=== PATIENT | male | born 1930 | race Caucasian/White ===

== ENCOUNTER → 2017-02-05 | Outpatient (REF) | payer MEDICARE ==
[2017-02-05 12:42] LABS: MEAN CORPUSCULAR HEMOGLOBIN 29.8 pg (27.0-33.0); MEAN CORPUSCULAR HGB CONC 33.8 g/dl (32.0-36.5); MEAN CORPUSCULAR VOLUME 88.1 fl (80.0-96.0); RED CELL DISTRIBUTION WIDTH 12.4 % (11.5-14.5); WHITE BLOOD COUNT 5.7 K/mm3 (4.0-10.0)
[2017-02-05 12:49] LABS: ALBUMIN 3.7 GM/DL (3.2-5.2); ALBUMIN/GLOBULIN RATIO 1.23 (1.00-1.93); ALKALINE PHOSPHATASE 65 U/L (45-117); ALT/SGPT 17 U/L (12-78); ANION GAP 9 MEQ/L (8-16); AST/SGOT 15 U/L (15-37); BILIRUBIN,TOTAL 0.6 MG/DL (0.2-1.0); BLOOD UREA NITROGEN 16 MG/DL (7-18); CALCIUM LEVEL 9.1 MG/DL (8.8-10.2); CARBON DIOXIDE LEVEL 27 MEQ/L (21-32); CHLORIDE LEVEL 105 MEQ/L (98-107); CHOLESTEROL LEVEL 240 MG/DL (<200); CREATININE FOR GFR 1.18 MG/DL (0.70-1.30); GLOMERULAR FILTRATION RATE > 60.0 (>35); GLUCOSE, FASTING 121 MG/DL (83-110); SODIUM LEVEL 141 MEQ/L (136-145); TOTAL PROTEIN 6.7 GM/DL (6.4-8.2); TRIGLYCERIDES LEVEL 119 MG/DL (<150)
== END ==
LOC: M SFHCCLAY 07:10
PROVIDERS: ATTEND Family Medicine
DX: M25.511 Pain in right shoulder (principal); I10 Essential (primary) hypertension; E11.9 Type 2 diabetes mellitus without complications; J44.9 Chronic obstructive pulmonary disease, unspecified

== ENCOUNTER → 2017-03-05 | Outpatient (REF) | payer MEDICARE | LOC: M SFHCCLAY 08:19 | PROVIDERS: ATTEND Nurse Practitioner | DX: R35.0 Frequency of micturition (principal) | CPT/HCPCS: 81002; 87086; G0463 ==

== ENCOUNTER → 2017-04-02 | Outpatient (REF) | payer MEDICARE ==
[2017-04-02 12:06] LABS: MEAN CORPUSCULAR HEMOGLOBIN 29.8 pg (27.0-33.0); MEAN CORPUSCULAR HGB CONC 33.4 g/dl (32.0-36.5); MEAN CORPUSCULAR VOLUME 89.4 fl (80.0-96.0); RED CELL DISTRIBUTION WIDTH 12.6 % (11.5-14.5); WHITE BLOOD COUNT 5.9 K/mm3 (4.0-10.0)
[2017-04-02 12:11] LABS: ALBUMIN 3.9 GM/DL (3.2-5.2); ALBUMIN/GLOBULIN RATIO 1.18 (1.00-1.93); ALKALINE PHOSPHATASE 96 U/L (45-117); ALT/SGPT 17 U/L (12-78); ANION GAP 7 MEQ/L (8-16); AST/SGOT 12 U/L (15-37); BILIRUBIN,TOTAL 0.6 MG/DL (0.2-1.0); BLOOD UREA NITROGEN 29 MG/DL (7-18); CALCIUM LEVEL 8.9 MG/DL (8.8-10.2); CARBON DIOXIDE LEVEL 25 MEQ/L (21-32); CHLORIDE LEVEL 102 MEQ/L (98-107); CREATININE FOR GFR 1.69 MG/DL (0.70-1.30); GLOMERULAR FILTRATION RATE 41.3 (>35); GLUCOSE, FASTING 101 MG/DL (83-110); SODIUM LEVEL 134 MEQ/L (136-145); TOTAL PROTEIN 7.2 GM/DL (6.4-8.2)
[2017-04-02 12:15] LABS: POTASSIUM SERUM 5.3 MEQ/L (3.5-5.1)
[2017-04-04 12:06] LABS: ALBUMIN 4.41 GM/DL (3.29-5.55); ALBUMIN % 61.3 % (55.8-66.1); GAMMA GLOBULIN % 12.8 % (11.1-18.8)
== END ==
LOC: M SFHCCLAY 08:51
PROVIDERS: ATTEND Family Medicine
DX: Z00.00 Encounter for general adult medical examination without abnormal findings (principal); M51.36 Other intervertebral disc degeneration, lumbar region; M54.5 Low back pain; Z12.5 Encounter for screening for malignant neoplasm of prostate
CPT/HCPCS: 80053; 84165; 85027; 85652; G0103

== ENCOUNTER → 2017-04-02 | Outpatient (CLI) | payer MEDICARE ==
--- NOTE | 2017-04-02 09:54 | REP ---
LUMBAR SPINE, SEVEN VIEWS: HISTORY: Back pain. COMPARISON: 05/01/2016. There is no acute fracture or subluxation. Osteophytes are present on L1 through S1. The intervertebral discs are decreased in height consistent with disc degeneration. There is narrowing of the facet joints. IMPRESSION: Degenerative change as described above.
== END ==
LOC: M CLY 08:53
PROVIDERS: ATTEND Family Medicine
DX: M51.36 Other intervertebral disc degeneration, lumbar region (principal)
CPT/HCPCS: 72114; 80053; 84165; 85027; 85652; G0103

== ENCOUNTER → 2017-04-10 | Outpatient (REF) | payer MEDICARE ==
[2017-04-10 12:02] LABS: ALBUMIN 4.1 GM/DL (3.2-5.2); CALCIUM LEVEL 9.4 MG/DL (8.8-10.2); CREATININE FOR GFR 1.82 MG/DL (0.70-1.30); GLOMERULAR FILTRATION RATE 37.9 (>35); PHOSPHORUS LEVEL 3.4 MG/DL (2.5-4.9); POTASSIUM SERUM 4.8 MEQ/L (3.5-5.1)
== END ==
LOC: M SFHCCLAY 07:54
PROVIDERS: ATTEND Family Medicine
DX: I10 Essential (primary) hypertension (principal)
CPT/HCPCS: 80069; G0463

== ENCOUNTER → 2017-07-23 | Outpatient (REF) | payer MEDICARE ==
[2017-07-23 11:38] LABS: MEAN CORPUSCULAR HEMOGLOBIN 28.7 pg (27.0-33.0); MEAN CORPUSCULAR HGB CONC 32.4 g/dl (32.0-36.5); MEAN CORPUSCULAR VOLUME 88.4 fl (80.0-96.0); RED CELL DISTRIBUTION WIDTH 13.2 % (11.5-14.5); WHITE BLOOD COUNT 5.8 K/mm3 (4.0-10.0)
[2017-07-23 11:50] LABS: CALCIUM LEVEL 8.6 MG/DL (8.8-10.2); CREATININE FOR GFR 1.63 MG/DL (0.70-1.30); GLOMERULAR FILTRATION RATE 42.9 (>35); POTASSIUM SERUM 4.2 MEQ/L (3.5-5.1)
== END ==
LOC: M SFHCCLAY 07:34
PROVIDERS: ATTEND Family Medicine
DX: D50.0 Iron deficiency anemia secondary to blood loss (chronic) (principal); I10 Essential (primary) hypertension; E11.9 Type 2 diabetes mellitus without complications; J44.9 Chronic obstructive pulmonary disease, unspecified

== ENCOUNTER → 2017-08-27 | Outpatient (REF) | payer MEDICARE | LOC: M SFHCCLAY 16:25 | PROVIDERS: ATTEND Family Medicine | DX: R30.0 Dysuria (principal) | CPT/HCPCS: 81002; 87086; G0463 ==

== ENCOUNTER → 2017-09-02 | Outpatient (REF) | payer MEDICARE ==
[2017-09-02 12:17] LABS: MEAN CORPUSCULAR HGB CONC 32.8 g/dl (32.0-36.5); MEAN CORPUSCULAR VOLUME 85.6 fl (80.0-96.0); PLATELET COUNT, AUTOMATED 197 10^3/uL (150-450); RED CELL DISTRIBUTION WIDTH 13.2 % (11.5-14.5); WHITE BLOOD COUNT 5.6 10^3/uL (4.0-10.0)
[2017-09-02 12:43] LABS: ALBUMIN 3.4 GM/DL (3.2-5.2); ALBUMIN/GLOBULIN RATIO 1.1 (1.00-1.93); BILIRUBIN,TOTAL 0.5 MG/DL (0.2-1.0); CALCIUM LEVEL 8.6 MG/DL (8.8-10.2); CREATININE FOR GFR 1.37 MG/DL (0.70-1.30); GLOMERULAR FILTRATION RATE 52.4 (>35); POTASSIUM SERUM 3.8 MEQ/L (3.5-5.1); TOTAL PROTEIN 6.5 GM/DL (6.4-8.2)
== END ==
LOC: M SFHCCLAY 07:59
PROVIDERS: ATTEND Family Medicine
DX: R30.0 Dysuria (principal); J44.9 Chronic obstructive pulmonary disease, unspecified; I10 Essential (primary) hypertension; D64.9 Anemia, unspecified

== ENCOUNTER → 2017-09-04 | Outpatient (REF) | payer MEDICARE | LOC: M SFHCCLAY 09:25 | PROVIDERS: ATTEND Family Medicine | DX: E11.21 Type 2 diabetes mellitus with diabetic nephropathy (principal); Z23 Encounter for immunization | CPT/HCPCS: 83036; 90662; G0008; G0463 ==

== ENCOUNTER 2017-11-19 02:00 | Inpatient (IN) | payer MEDICARE, MEDICAID ==
[2017-11-19] MEDS: NS 1,000 ML IV (02:43)
[2017-11-19] MEDS ORDERED: IPRATROPIUM 0.5MG/ALBUTEROL 2.5MG INH SOL UD 3ML (DUONEB)(J7620) NEB (05:15)
[2017-11-19] MEDS ORDERED: GLUCAGON FOR INJ 1 MG VIAL (J1610) SC (05:15)
[2017-11-19] MEDS ORDERED: GLUCOSE 4 GM CHEW TABLET PO (05:15)
[2017-11-19] MEDS ORDERED: DEXTROSE 50% 50 ML SYRINGE IV (05:15)
[2017-11-19] MEDS ORDERED: OLOPATADINE 0.1% OPHTH SOL 5ML(PATANOL) OU (05:30)
[2017-11-19 06:17] LABS: HEMATOCRIT 34.8 % (42.0-52.0); HEMOGLOBIN 11.5 g/dl (14.0-18.0); MEAN CORPUSCULAR VOLUME 87.7 fl (80.0-96.0); PLATELET COUNT, AUTOMATED 193 10^3/uL (150-450); RED BLOOD COUNT 3.97 10^6/uL (4.30-6.10); RED CELL DISTRIBUTION WIDTH 13.5 % (11.5-14.5); WHITE BLOOD COUNT 8.8 10^3/uL (4.0-10.0)
[2017-11-19] MEDS: HumaLOG INSULIN (NovoLOG) PER UNIT SC ×4 (06:20→23:54)
[2017-11-19] MEDS: LEVEMIR (INSULIN DETEMIR) 1 UNITS/0.01ML SC (06:20)
[2017-11-19] MEDS: D5W/0.45% SODIUM CHLORIDE 1,000 ML IV ×2 (06:21→17:34)
[2017-11-19 06:32] LABS: ANION GAP 6 MEQ/L (8-16); BLOOD UREA NITROGEN 62 MG/DL (7-18); CALCIUM LEVEL 8.5 MG/DL (8.8-10.2); CARBON DIOXIDE LEVEL 31 MEQ/L (21-32); CHLORIDE LEVEL 103 MEQ/L (98-107); CREATININE FOR GFR 1.95 MG/DL (0.70-1.30); GLOMERULAR FILTRATION RATE 34.9 (>35); GLUCOSE, FASTING 125 MG/DL (83-110); SODIUM LEVEL 140 MEQ/L (136-145)
[2017-11-19] MEDS: cloNIDine HCL 0.1 MG/24 HR PATCH TOP (09:45)
[2017-11-19] MEDS: ADVAIR HFA 230/21MCG INHALER INH ×2 (10:00→21:00)
[2017-11-19 11:38] LABS: BEDSIDE GLUCOSE 121 MG/DL (83-110)
[2017-11-19 11:49] LABS: BEDSIDE GLUCOSE 125 MG/DL (83-110)
[2017-11-19 17:14] LABS: BEDSIDE GLUCOSE 118 MG/DL (83-110)
[2017-11-19 23:50] LABS: BEDSIDE GLUCOSE 142 MG/DL (83-110)
[2017-11-19] MEDS: MORPHINE 2 MG/ML 1ML SYRINGE IV (23:55)
[2017-11-20] MEDS: D5W/0.45% SODIUM CHLORIDE 1,000 ML IV ×3 (03:24→21:36)
[2017-11-20] MEDS: MORPHINE 2 MG/ML 1ML SYRINGE IV (03:45)
[2017-11-20] MEDS: HumaLOG INSULIN (NovoLOG) PER UNIT SC ×4 (06:11→23:56)
[2017-11-20 06:14] LABS: BEDSIDE GLUCOSE 115 MG/DL (83-110)
[2017-11-20 06:51] LABS: HEMATOCRIT 36.4 % (42.0-52.0); HEMOGLOBIN 11.9 g/dl (14.0-18.0); MEAN CORPUSCULAR HEMOGLOBIN 28.8 pg (27.0-33.0); MEAN CORPUSCULAR HGB CONC 32.7 g/dl (32.0-36.5); MEAN CORPUSCULAR VOLUME 88.1 fl (80.0-96.0); PLATELET COUNT, AUTOMATED 190 10^3/uL (150-450); RED BLOOD COUNT 4.13 10^6/uL (4.30-6.10); RED CELL DISTRIBUTION WIDTH 13.5 % (11.5-14.5)
[2017-11-20 07:08] LABS: ANION GAP 5 MEQ/L (8-16); BLOOD UREA NITROGEN 45 MG/DL (7-18); CALCIUM LEVEL 8.6 MG/DL (8.8-10.2); CARBON DIOXIDE LEVEL 30 MEQ/L (21-32); CHLORIDE LEVEL 106 MEQ/L (98-107); CREATININE FOR GFR 1.63 MG/DL (0.70-1.30); GLOMERULAR FILTRATION RATE 42.9 (>35); GLUCOSE, FASTING 126 MG/DL (83-110); POTASSIUM SERUM 3.8 MEQ/L (3.5-5.1); SODIUM LEVEL 141 MEQ/L (136-145)
[2017-11-20] MEDS: ADVAIR HFA 230/21MCG INHALER INH ×2 (08:06→21:46)
[2017-11-20 11:59] LABS: BEDSIDE GLUCOSE 123 MG/DL (83-110)
[2017-11-20] MEDS: TAMSULOSIN 0.4 MG CAP PO ×2 (12:34→21:36)
[2017-11-20] MEDS: FINASTERIDE 5 MG TAB PO (14:26)
[2017-11-20] MEDS: PANTOPRAZOLE 40MG TAB (PROTONIX) PO (14:26)
[2017-11-20] MEDS: HEPARIN SOD (PORCINE) 5000 UNITS/ML VIAL SQ (14:26)
[2017-11-20 17:55] LABS: BEDSIDE GLUCOSE 109 MG/DL (83-110)
[2017-11-21] MEDS: HEPARIN SOD (PORCINE) 5000 UNITS/ML VIAL SQ ×2 (02:10→13:50)
[2017-11-21 03:05] LABS: BEDSIDE GLUCOSE 124 MG/DL (83-110)
[2017-11-21] MEDS: MORPHINE 2 MG/ML 1ML SYRINGE IV (03:43)
[2017-11-21] MEDS: HumaLOG INSULIN (NovoLOG) PER UNIT SC ×4 (06:00→23:53)
[2017-11-21 07:02] LABS: HEMATOCRIT 32.2 % (42.0-52.0); HEMOGLOBIN 10.5 g/dl (14.0-18.0); MEAN CORPUSCULAR HEMOGLOBIN 28.6 pg (27.0-33.0); MEAN CORPUSCULAR HGB CONC 32.6 g/dl (32.0-36.5); MEAN CORPUSCULAR VOLUME 87.7 fl (80.0-96.0); PLATELET COUNT, AUTOMATED 153 10^3/uL (150-450); RED BLOOD COUNT 3.67 10^6/uL (4.30-6.10); RED CELL DISTRIBUTION WIDTH 13.4 % (11.5-14.5); WHITE BLOOD COUNT 7.1 10^3/uL (4.0-10.0)
[2017-11-21 07:15] LABS: BEDSIDE GLUCOSE 145 MG/DL (83-110)
[2017-11-21 07:18] LABS: ANION GAP 7 MEQ/L (8-16); BLOOD UREA NITROGEN 30 MG/DL (7-18); CALCIUM LEVEL 7.8 MG/DL (8.8-10.2); CARBON DIOXIDE LEVEL 28 MEQ/L (21-32); CHLORIDE LEVEL 107 MEQ/L (98-107); CREATININE FOR GFR 1.48 MG/DL (0.70-1.30); GLUCOSE, FASTING 146 MG/DL (83-110); POTASSIUM SERUM 3.8 MEQ/L (3.5-5.1); SODIUM LEVEL 142 MEQ/L (136-145)
[2017-11-21] MEDS: D5W/0.45% SODIUM CHLORIDE 1,000 ML IV ×2 (08:49→18:02)
[2017-11-21] MEDS: FINASTERIDE 5 MG TAB PO (08:49)
[2017-11-21] MEDS: PANTOPRAZOLE 40MG TAB (PROTONIX) PO (08:49)
[2017-11-21] MEDS: TAMSULOSIN 0.4 MG CAP PO ×2 (08:49→20:28)
[2017-11-21] MEDS: ADVAIR HFA 230/21MCG INHALER INH ×2 (08:51→21:00)
[2017-11-21 12:36] LABS: BEDSIDE GLUCOSE 151 MG/DL (83-110)
[2017-11-21] MEDS: SIMETHICONE 80 MG CHEW TAB PO ×3 (13:51→20:28)
[2017-11-21] MEDS ORDERED: ACETAMINOPHEN TAB 650MG DOSE (2X325MG) PO (16:15)
[2017-11-21 18:02] LABS: BEDSIDE GLUCOSE 149 MG/DL (83-110)
[2017-11-21 23:53] LABS: BEDSIDE GLUCOSE 146 MG/DL (83-110)
[2017-11-22] MEDS: HEPARIN SOD (PORCINE) 5000 UNITS/ML VIAL SQ ×2 (01:32→15:28)
[2017-11-22] MEDS: D5W/0.45% SODIUM CHLORIDE 1,000 ML IV ×3 (03:58→23:13)
[2017-11-22] MEDS: HumaLOG INSULIN (NovoLOG) PER UNIT SC ×4 (05:48→23:48)
[2017-11-22 05:50] LABS: BEDSIDE GLUCOSE 128 MG/DL (83-110)
[2017-11-22 06:29] LABS: HEMATOCRIT 31.3 % (42.0-52.0); HEMOGLOBIN 10.3 g/dl (14.0-18.0); MEAN CORPUSCULAR HEMOGLOBIN 28.5 pg (27.0-33.0); MEAN CORPUSCULAR HGB CONC 32.9 g/dl (32.0-36.5); MEAN CORPUSCULAR VOLUME 86.7 fl (80.0-96.0); PLATELET COUNT, AUTOMATED 144 10^3/uL (150-450); RED BLOOD COUNT 3.61 10^6/uL (4.30-6.10); RED CELL DISTRIBUTION WIDTH 13.2 % (11.5-14.5); WHITE BLOOD COUNT 6.8 10^3/uL (4.0-10.0)
[2017-11-22 07:01] LABS: ANION GAP 5 MEQ/L (8-16); BLOOD UREA NITROGEN 21 MG/DL (7-18); CALCIUM LEVEL 7.9 MG/DL (8.8-10.2); CARBON DIOXIDE LEVEL 28 MEQ/L (21-32); CHLORIDE LEVEL 108 MEQ/L (98-107); CREATININE FOR GFR 1.37 MG/DL (0.70-1.30); GLOMERULAR FILTRATION RATE 52.4 (>35); GLUCOSE, FASTING 133 MG/DL (83-110); POTASSIUM SERUM 3.8 MEQ/L (3.5-5.1); SODIUM LEVEL 141 MEQ/L (136-145)
[2017-11-22] MEDS: ADVAIR HFA 230/21MCG INHALER INH ×2 (07:49→21:29)
[2017-11-22] MEDS: PANTOPRAZOLE 40MG TAB (PROTONIX) PO (09:18)
[2017-11-22] MEDS: FINASTERIDE 5 MG TAB PO (09:18)
[2017-11-22] MEDS: SIMETHICONE 80 MG CHEW TAB PO ×4 (09:18→20:56)
[2017-11-22] MEDS: TAMSULOSIN 0.4 MG CAP PO ×2 (09:18→20:56)
[2017-11-22] MEDS: LevoFLOXacin(LEVAQUIN)500 MG/100 ML BAG (J1956) As Ordered (10:45)
[2017-11-22] MEDS: BUPIVACAINE HCL 0.25% 30 ML VIAL As Ordered (11:38)
[2017-11-22] MEDS: LIDOCAINE W/EPINEPHRINE 1% 20ML VIAL As Ordered (11:38)
[2017-11-22] MEDS ORDERED: MORPHINE 2 MG/ML 1ML SYRINGE IV (11:45)
[2017-11-22] MEDS ORDERED: NORCO, ANEXSIA 5/325MG TABLET (HYDROcodone/ACETAMINOPHEN) PO ×2 (11:45)
[2017-11-22] MEDS ORDERED: fentaNYL 100 MCG/2 ML INJECTION (J3010) IV (12:15)
[2017-11-22] MEDS: LR 1,000 ML IV (12:15)
[2017-11-22] MEDS ORDERED: ONDANSETRON 4MG/2ML VIAL (J2405) IV (12:15)
[2017-11-22] MEDS ORDERED: PERCOCET 5MG/325MG TAB As Ordered (12:40)
[2017-11-22] MEDS: PERCOCET 5MG/325MG TAB PO (12:43)
[2017-11-22] MEDS ORDERED: MIDAZOLAM INJ 2 MG/2 ML VIAL (J2250) As Ordered (13:14)
[2017-11-22] MEDS ORDERED: fentaNYL 100 MCG/2 ML INJECTION (J3010) As Ordered (13:14)
[2017-11-22 13:34] LABS: BEDSIDE GLUCOSE 147 MG/DL (83-110)
[2017-11-22 17:50] LABS: BEDSIDE GLUCOSE 139 MG/DL (83-110)
[2017-11-22] MEDS: DOCUSATE SODIUM 100 MG CAP PO (20:56)
[2017-11-22] MEDS: SENNA 8.6 MG TAB (SENOKOT) PO (20:56)
[2017-11-22] MEDS: ACETAMINOPHEN TAB 650MG DOSE (2X325MG) PO (20:57)
[2017-11-22 23:49] LABS: BEDSIDE GLUCOSE 183 MG/DL (83-110)
[2017-11-23] MEDS: HEPARIN SOD (PORCINE) 5000 UNITS/ML VIAL SQ ×2 (01:46→12:58)
[2017-11-23 05:49] LABS: BEDSIDE GLUCOSE 140 MG/DL (83-110)
[2017-11-23] MEDS: HumaLOG INSULIN (NovoLOG) PER UNIT SC ×4 (06:01→23:44)
[2017-11-23 06:03] LABS: HEMATOCRIT 30.8 % (42.0-52.0); HEMOGLOBIN 10.1 g/dl (14.0-18.0); MEAN CORPUSCULAR HEMOGLOBIN 28.6 pg (27.0-33.0); MEAN CORPUSCULAR HGB CONC 32.8 g/dl (32.0-36.5); MEAN CORPUSCULAR VOLUME 87.3 fl (80.0-96.0); PLATELET COUNT, AUTOMATED 136 10^3/uL (150-450); RED BLOOD COUNT 3.53 10^6/uL (4.30-6.10); RED CELL DISTRIBUTION WIDTH 13.3 % (11.5-14.5); WHITE BLOOD COUNT 7.4 10^3/uL (4.0-10.0)
[2017-11-23 06:25] LABS: ANION GAP 7 MEQ/L (8-16); BLOOD UREA NITROGEN 18 MG/DL (7-18); CALCIUM LEVEL 7.7 MG/DL (8.8-10.2); CARBON DIOXIDE LEVEL 25 MEQ/L (21-32); CHLORIDE LEVEL 106 MEQ/L (98-107); CREATININE FOR GFR 1.35 MG/DL (0.70-1.30); GLOMERULAR FILTRATION RATE 53.3 (>35); GLUCOSE, FASTING 144 MG/DL (83-110); POTASSIUM SERUM 3.7 MEQ/L (3.5-5.1); SODIUM LEVEL 138 MEQ/L (136-145)
[2017-11-23] MEDS: ADVAIR HFA 230/21MCG INHALER INH ×2 (08:20→19:35)
[2017-11-23] MEDS: DOCUSATE SODIUM 100 MG CAP PO ×2 (09:26→21:56)
[2017-11-23] MEDS: SIMETHICONE 80 MG CHEW TAB PO ×4 (09:26→21:56)
[2017-11-23] MEDS: PANTOPRAZOLE 40MG TAB (PROTONIX) PO (09:27)
[2017-11-23] MEDS: FINASTERIDE 5 MG TAB PO (09:27)
[2017-11-23] MEDS: TAMSULOSIN 0.4 MG CAP PO ×2 (09:27→21:56)
[2017-11-23] MEDS: D5W/0.45% SODIUM CHLORIDE 1,000 ML IV (09:27)
[2017-11-23 12:28] LABS: BEDSIDE GLUCOSE 156 MG/DL (83-110)
[2017-11-23] MEDS: ACETAMINOPHEN TAB 650MG DOSE (2X325MG) PO ×2 (12:58→18:44)
[2017-11-23] MEDS: amLODIPine 5 MG TAB PO (14:51)
[2017-11-23 17:34] LABS: BEDSIDE GLUCOSE 119 MG/DL (83-110)
[2017-11-23] MEDS: SENNA 8.6 MG TAB (SENOKOT) PO (21:56)
[2017-11-23 23:47] LABS: BEDSIDE GLUCOSE 148 MG/DL (83-110)
[2017-11-24] MEDS: HEPARIN SOD (PORCINE) 5000 UNITS/ML VIAL SQ ×2 (01:41→13:05)
[2017-11-24 06:12] LABS: BEDSIDE GLUCOSE 126 MG/DL (83-110)
[2017-11-24 06:13] LABS: HEMATOCRIT 29.9 % (42.0-52.0); HEMOGLOBIN 9.8 g/dl (14.0-18.0); MEAN CORPUSCULAR HEMOGLOBIN 28.6 pg (27.0-33.0); MEAN CORPUSCULAR HGB CONC 32.8 g/dl (32.0-36.5); MEAN CORPUSCULAR VOLUME 87.2 fl (80.0-96.0); PLATELET COUNT, AUTOMATED 136 10^3/uL (150-450); RED BLOOD COUNT 3.43 10^6/uL (4.30-6.10); RED CELL DISTRIBUTION WIDTH 13.5 % (11.5-14.5); WHITE BLOOD COUNT 7.9 10^3/uL (4.0-10.0)
[2017-11-24] MEDS: HumaLOG INSULIN (NovoLOG) PER UNIT SC ×4 (06:15→20:57)
[2017-11-24 06:30] LABS: ANION GAP 6 MEQ/L (8-16); BLOOD UREA NITROGEN 15 MG/DL (7-18); CARBON DIOXIDE LEVEL 26 MEQ/L (21-32); CHLORIDE LEVEL 108 MEQ/L (98-107); CREATININE FOR GFR 1.33 MG/DL (0.70-1.30); GLOMERULAR FILTRATION RATE 54.3 (>35); GLUCOSE, FASTING 119 MG/DL (83-110); POTASSIUM SERUM 3.6 MEQ/L (3.5-5.1); SODIUM LEVEL 140 MEQ/L (136-145)
[2017-11-24] MEDS: ADVAIR HFA 230/21MCG INHALER INH ×2 (08:13→22:09)
[2017-11-24] MEDS: PANTOPRAZOLE 40MG TAB (PROTONIX) PO (08:38)
[2017-11-24] MEDS: FINASTERIDE 5 MG TAB PO (08:38)
[2017-11-24] MEDS: TAMSULOSIN 0.4 MG CAP PO ×2 (08:38→21:01)
[2017-11-24] MEDS: SIMETHICONE 80 MG CHEW TAB PO ×4 (08:39→21:01)
[2017-11-24] MEDS: DOCUSATE SODIUM 100 MG CAP PO (08:39)
[2017-11-24] MEDS: amLODIPine 5 MG TAB PO (08:39)
[2017-11-24] MEDS ORDERED: GLUCOSE 4 GM CHEW TABLET PO (11:30)
[2017-11-24] MEDS ORDERED: DEXTROSE 50% 50 ML SYRINGE IV (11:30)
[2017-11-24] MEDS ORDERED: GLUCAGON FOR INJ 1 MG VIAL (J1610) SC (11:30)
[2017-11-24 11:59] LABS: BEDSIDE GLUCOSE 133 MG/DL (83-110)
[2017-11-24] MEDS: ACETAMINOPHEN TAB 650MG DOSE (2X325MG) PO ×2 (13:06→22:31)
[2017-11-24 16:54] LABS: BEDSIDE GLUCOSE 149 MG/DL (83-110)
[2017-11-24 21:27] LABS: BEDSIDE GLUCOSE 135 MG/DL (83-110)
[2017-11-25] MEDS: HEPARIN SOD (PORCINE) 5000 UNITS/ML VIAL SQ ×2 (02:23→14:23)
[2017-11-25 06:43] LABS: HEMATOCRIT 29.5 % (42.0-52.0); HEMOGLOBIN 9.8 g/dl (14.0-18.0); MEAN CORPUSCULAR HEMOGLOBIN 28.8 pg (27.0-33.0); MEAN CORPUSCULAR HGB CONC 33.2 g/dl (32.0-36.5); MEAN CORPUSCULAR VOLUME 86.8 fl (80.0-96.0); PLATELET COUNT, AUTOMATED 149 10^3/uL (150-450); RED CELL DISTRIBUTION WIDTH 13.8 % (11.5-14.5); WHITE BLOOD COUNT 7.9 10^3/uL (4.0-10.0)
[2017-11-25 07:02] LABS: ANION GAP 7 MEQ/L (8-16); BLOOD UREA NITROGEN 16 MG/DL (7-18); CALCIUM LEVEL 8.1 MG/DL (8.8-10.2); CARBON DIOXIDE LEVEL 25 MEQ/L (21-32); CHLORIDE LEVEL 108 MEQ/L (98-107); CREATININE FOR GFR 1.21 MG/DL (0.70-1.30); GLOMERULAR FILTRATION RATE > 60.0 (>35); GLUCOSE, FASTING 128 MG/DL (83-110); POTASSIUM SERUM 3.5 MEQ/L (3.5-5.1); SODIUM LEVEL 140 MEQ/L (136-145)
[2017-11-25] MEDS: ADVAIR HFA 230/21MCG INHALER INH ×2 (07:21→21:33)
[2017-11-25] MEDS: HumaLOG INSULIN (NovoLOG) PER UNIT SC ×4 (07:30→20:49)
[2017-11-25] MEDS: SIMETHICONE 80 MG CHEW TAB PO ×4 (09:03→20:52)
[2017-11-25] MEDS: FINASTERIDE 5 MG TAB PO (09:03)
[2017-11-25] MEDS: PANTOPRAZOLE 40MG TAB (PROTONIX) PO (09:04)
[2017-11-25] MEDS: TAMSULOSIN 0.4 MG CAP PO ×2 (09:04→20:51)
[2017-11-25] MEDS: amLODIPine 5 MG TAB PO (09:04)
[2017-11-25] MEDS: CIPROFLOXACIN 500 MG TAB PO ×2 (10:52→17:17)
[2017-11-25] MEDS: ACETAMINOPHEN TAB 650MG DOSE (2X325MG) PO ×2 (10:53→22:58)
[2017-11-25 11:26] LABS: BEDSIDE GLUCOSE 179 MG/DL (83-110)
[2017-11-25 16:55] LABS: BEDSIDE GLUCOSE 104 MG/DL (83-110)
[2017-11-25 21:02] LABS: BEDSIDE GLUCOSE 186 MG/DL (83-110)
[2017-11-26] MEDS: HEPARIN SOD (PORCINE) 5000 UNITS/ML VIAL SQ ×2 (02:22→14:00)
[2017-11-26] MEDS: CIPROFLOXACIN 500 MG TAB PO (05:50)
[2017-11-26 06:46] LABS: BEDSIDE GLUCOSE 135 MG/DL (83-110)
[2017-11-26] MEDS: ADVAIR HFA 230/21MCG INHALER INH (07:06)
[2017-11-26] MEDS: HumaLOG INSULIN (NovoLOG) PER UNIT SC ×2 (07:19→12:00)
[2017-11-26] MEDS: SIMETHICONE 80 MG CHEW TAB PO ×2 (09:00→13:00)
[2017-11-26] MEDS: FINASTERIDE 5 MG TAB PO (09:00)
[2017-11-26] MEDS: TAMSULOSIN 0.4 MG CAP PO (09:00)
[2017-11-26] MEDS: amLODIPine 5 MG TAB PO (09:00)
[2017-11-26] MEDS: PANTOPRAZOLE 40MG TAB (PROTONIX) PO (09:00)
[2017-11-26] MEDS: ACETAMINOPHEN TAB 650MG DOSE (2X325MG) PO (10:18)
[2017-11-26 12:03] LABS: BEDSIDE GLUCOSE 130 MG/DL (83-110)
== END 2017-11-26 16:01 | disposition home health service (06) | DRG 351 ==
LOC: M ED 02:00 → M MSPAV 05:29 → M ED 06:10 → M MSPAV 06:11
PROVIDERS: Surgery
PROC: 0YU50JZ Supplement Right Inguinal Region with Synthetic Substitute, Open Approach (ICD-10-PCS; principal; 2017-11-22 09:15)
DX: K56.609 Unspecified intestinal obstruction, unspecified as to partial versus complete obstruction (principal); K40.30 Unilateral inguinal hernia, with obstruction, without gangrene, not specified as recurrent; I12.9 Hypertensive chronic kidney disease with stage 1 through stage 4 chronic kidney disease, or unspecified chronic kidney disease; E78.5 Hyperlipidemia, unspecified; E11.9 Type 2 diabetes mellitus without complications; J44.9 Chronic obstructive pulmonary disease, unspecified; K21.9 Gastro-esophageal reflux disease without esophagitis; N18.3 Chronic kidney disease, stage 3 (moderate); D63.1 Anemia in chronic kidney disease; Z79.84 Long term (current) use of oral hypoglycemic drugs; Z79.899 Other long term (current) drug therapy; Z88.0 Allergy status to penicillin; Z88.2 Allergy status to sulfonamides; Z88.8 Allergy status to other drugs, medicaments and biological substances; Z87.891 Personal history of nicotine dependence; N40.1 Benign prostatic hyperplasia with lower urinary tract symptoms

== ENCOUNTER → 2017-12-05 | Outpatient (REF) | payer MEDICARE ==
[2017-12-06 12:07] LABS: ALBUMIN 3.5 GM/DL (3.2-5.2); ANION GAP 9 MEQ/L (8-16); BLOOD UREA NITROGEN 19 MG/DL (7-18); CALCIUM LEVEL 8.7 MG/DL (8.8-10.2); CARBON DIOXIDE LEVEL 29 MEQ/L (21-32); CHLORIDE LEVEL 99 MEQ/L (98-107); CREATININE FOR GFR 1.45 MG/DL (0.70-1.30); GLOMERULAR FILTRATION RATE 49.1 (>35); GLUCOSE, FASTING 91 MG/DL (70-100); PHOSPHORUS LEVEL 2.9 MG/DL (2.5-4.9); POTASSIUM SERUM 3.9 MEQ/L (3.5-5.1); SODIUM LEVEL 137 MEQ/L (136-145)
== END ==
LOC: M SFHCCLAY 12-06 11:29
DX: N18.3 Chronic kidney disease, stage 3 (moderate) (principal)
CPT/HCPCS: 80069

== ENCOUNTER → 2017-12-17 | Outpatient (REF) | payer MEDICARE | LOC: M SMT 17:30 | DX: R30.0 Dysuria (principal) | CPT/HCPCS: 87086 ==

== ENCOUNTER → 2017-12-26 | Outpatient (REF) | payer MEDICARE ==
[2017-12-26 12:03] LABS: ALBUMIN 3.7 GM/DL (3.2-5.2); ANION GAP 6 MEQ/L (8-16); BLOOD UREA NITROGEN 29 MG/DL (7-18); CALCIUM LEVEL 9.2 MG/DL (8.8-10.2); CARBON DIOXIDE LEVEL 31 MEQ/L (21-32); CHLORIDE LEVEL 98 MEQ/L (98-107); GLOMERULAR FILTRATION RATE 40.9 (>35); GLUCOSE, FASTING 119 MG/DL (70-100); POTASSIUM SERUM 4.8 MEQ/L (3.5-5.1); SODIUM LEVEL 135 MEQ/L (136-145)
== END ==
LOC: M SFHCCLAY 07:10
DX: N18.3 Chronic kidney disease, stage 3 (moderate) (principal)
CPT/HCPCS: 80069

== ENCOUNTER → 2018-01-01 | Outpatient (REF) | payer MEDICARE, MEDICAID ==
[2018-01-01 11:34] LABS: HEMATOCRIT 31.6 % (42.0-52.0); HEMOGLOBIN 10.3 g/dl (14.0-18.0); MEAN CORPUSCULAR HEMOGLOBIN 28.4 pg (27.0-33.0); MEAN CORPUSCULAR HGB CONC 32.6 g/dl (32.0-36.5); MEAN CORPUSCULAR VOLUME 87.1 fl (80.0-96.0); PLATELET COUNT, AUTOMATED 205 10^3/uL (150-450); RED BLOOD COUNT 3.63 10^6/uL (4.30-6.10); RED CELL DISTRIBUTION WIDTH 13.4 % (11.5-14.5); WHITE BLOOD COUNT 6.3 10^3/uL (4.0-10.0)
[2018-01-01 11:49] LABS: ANION GAP 7 MEQ/L (8-16); BLOOD UREA NITROGEN 34 MG/DL (7-18); CALCIUM LEVEL 9.1 MG/DL (8.8-10.2); CARBON DIOXIDE LEVEL 29 MEQ/L (21-32); CHLORIDE LEVEL 105 MEQ/L (98-107); CREATININE FOR GFR 1.79 MG/DL (0.70-1.30); GLOMERULAR FILTRATION RATE 38.5 (>35); GLUCOSE, FASTING 104 MG/DL (70-100); POTASSIUM SERUM 4.4 MEQ/L (3.5-5.1); SODIUM LEVEL 141 MEQ/L (136-145); URIC ACID 9.9 MG/DL (3.5-7.2)
== END ==
LOC: M SFHCCLAY 07:15
DX: J44.9 Chronic obstructive pulmonary disease, unspecified (principal); M10.00 Idiopathic gout, unspecified site
CPT/HCPCS: 84550

== ENCOUNTER → 2018-02-26 | Outpatient (REF) | payer MEDICARE, MEDICAID | LOC: M SFHCCLAY 08:06 | DX: D50.0 Iron deficiency anemia secondary to blood loss (chronic) (principal) ==

== ENCOUNTER → 2018-03-04 | Outpatient (REF) | payer MEDICARE, MEDICAID ==
[2018-03-04 12:16] LABS: IRON (FE) 73 UG/DL (65-175); PERCENT SATURATION 24.2 % (19.7-50.0); TOTAL IRON BINDING CAPACITY 302 UG/DL (250-450)
== END ==
LOC: M SFHCCLAY 08:19
DX: D50.0 Iron deficiency anemia secondary to blood loss (chronic) (principal)
CPT/HCPCS: 83550

== ENCOUNTER → 2018-06-24 | Outpatient (REF) | payer MEDICARE, MEDICAID ==
[2018-06-24 12:13] LABS: MEAN CORPUSCULAR HEMOGLOBIN 29.3 pg (27.0-33.0); MEAN CORPUSCULAR HGB CONC 33.3 g/dl (32.0-36.5); PLATELET COUNT, AUTOMATED 189 10^3/uL (150-450); RED BLOOD COUNT 3.41 10^6/uL (4.30-6.10); RED CELL DISTRIBUTION WIDTH 13.8 % (11.5-14.5); WHITE BLOOD COUNT 5.1 10^3/uL (4.0-10.0)
[2018-06-24 12:16] LABS: ANION GAP 8 MEQ/L (8-16); BLOOD UREA NITROGEN 24 MG/DL (7-18); CALCIUM LEVEL 8.3 MG/DL (8.8-10.2); CARBON DIOXIDE LEVEL 28 MEQ/L (21-32); CHLORIDE LEVEL 109 MEQ/L (98-107); CREATININE FOR GFR 1.33 MG/DL (0.70-1.30); GLOMERULAR FILTRATION RATE 54.3 (>35); GLUCOSE, FASTING 144 MG/DL (70-100); POTASSIUM SERUM 3.5 MEQ/L (3.5-5.1); SODIUM LEVEL 145 MEQ/L (136-145)
[2018-06-24 13:23] LABS: ESTIMATED AVERAGE GLUCOSE 131 MG/DL (60-110); HEMOGLOBIN A1c 6.2 %
== END ==
LOC: M SFHCCLAY 07:54
DX: I12.9 Hypertensive chronic kidney disease with stage 1 through stage 4 chronic kidney disease, or unspecified chronic kidney disease (principal); J44.9 Chronic obstructive pulmonary disease, unspecified; E11.9 Type 2 diabetes mellitus without complications
CPT/HCPCS: 83036

== ENCOUNTER → 2018-10-07 | Outpatient (REF) | payer MEDICARE ==
[2018-10-07 12:34] LABS: HEMATOCRIT 31.5 % (42.0-52.0); HEMOGLOBIN 10.5 g/dl (13.5-17.5); MEAN CORPUSCULAR HEMOGLOBIN 29.5 pg (27.0-33.0); MEAN CORPUSCULAR HGB CONC 33.3 g/dl (32.0-36.5); MEAN CORPUSCULAR VOLUME 88.5 fl (80.0-96.0); PLATELET COUNT, AUTOMATED 194 10^3/uL (150-450); RED BLOOD COUNT 3.56 10^6/uL (4.30-6.10); RED CELL DISTRIBUTION WIDTH 13.4 % (11.5-14.5); WHITE BLOOD COUNT 5.6 10^3/uL (4.0-10.0)
[2018-10-07 13:09] LABS: ALBUMIN 3.6 GM/DL (3.2-5.2); ALKALINE PHOSPHATASE 100 U/L (45-117); ALT/SGPT 14 U/L (12-78); ANION GAP 7 MEQ/L (8-16); AST/SGOT 10 U/L (7-37); BILIRUBIN,TOTAL 0.6 MG/DL (0.2-1.0); BLOOD UREA NITROGEN 18 MG/DL (7-18); CALCIUM LEVEL 8.4 MG/DL (8.8-10.2); CARBON DIOXIDE LEVEL 26 MEQ/L (21-32); CHLORIDE LEVEL 108 MEQ/L (98-107); CREATININE FOR GFR 1.41 MG/DL (0.70-1.30); GLOMERULAR FILTRATION RATE 50.6 (>35); GLUCOSE, FASTING 101 MG/DL (70-100); IRON (FE) 80 UG/DL (65-175); POTASSIUM SERUM 4.2 MEQ/L (3.5-5.1); SODIUM LEVEL 141 MEQ/L (136-145); TOTAL PROTEIN 6.6 GM/DL (6.4-8.2); URIC ACID 7.2 MG/DL (3.5-7.2)
[2018-10-07 13:28] LABS: MAU/CREAT RATIO 264.7 MCG/MG (0.0-30.0)
[2018-10-07 13:43] LABS: ESTIMATED AVERAGE GLUCOSE 128 MG/DL (60-110); HEMOGLOBIN A1c 6.1 %
== END ==
LOC: M SFHCCLAY 07:39
DX: D50.0 Iron deficiency anemia secondary to blood loss (chronic) (principal); M10.00 Idiopathic gout, unspecified site; E11.9 Type 2 diabetes mellitus without complications; I12.9 Hypertensive chronic kidney disease with stage 1 through stage 4 chronic kidney disease, or unspecified chronic kidney disease
CPT/HCPCS: 83540

== ENCOUNTER → 2019-02-03 | Outpatient (REF) | payer MEDICARE ==
[~2019-02-03] MED LIST: ADV250INH INH; AMLO5TAB6 PO; DOCU100C16 PO; FINA5TAB2 PO; FLOM0.4C39 PO; FURO40TA2 PO; GLIM1TAB PO; HYDR2.5C TOP; LOSA100T50 PO; NEXI40CA PO; OLOP0.1D OU
[2019-02-03 13:17] LABS: HEMATOCRIT 30.6 % (42.0-52.0); HEMOGLOBIN 9.8 g/dl (13.5-17.5); MEAN CORPUSCULAR HEMOGLOBIN 28.2 pg (27.0-33.0); MEAN CORPUSCULAR VOLUME 88.2 fl (80.0-96.0); PLATELET COUNT, AUTOMATED 225 10^3/uL (150-450); RED BLOOD COUNT 3.47 10^6/uL (4.30-6.10); WHITE BLOOD COUNT 6.2 10^3/uL (4.0-10.0)
[2019-02-03 13:33] LABS: CALCIUM LEVEL 8.8 MG/DL (8.8-10.2); CREATININE FOR GFR 1.46 MG/DL (0.70-1.30); GLOMERULAR FILTRATION RATE 48.6 (>35); POTASSIUM SERUM 4.1 MEQ/L (3.5-5.1); URIC ACID 7.9 MG/DL (3.5-7.2)
[2019-02-03 13:59] LABS: HEMOGLOBIN A1c 6.6 %
== END ==
LOC: M SFHCCLAY 07:41
PROVIDERS: ATTEND Family Medicine
DX: D50.0 Iron deficiency anemia secondary to blood loss (chronic) (principal); J44.9 Chronic obstructive pulmonary disease, unspecified; E11.21 Type 2 diabetes mellitus with diabetic nephropathy; M10.00 Idiopathic gout, unspecified site

== ENCOUNTER → 2019-03-26 | Outpatient (REF) | payer MEDICARE | LOC: M SFHCCLAY 13:43 | PROVIDERS: ATTEND Nurse Practitioner Family | DX: M54.9 Dorsalgia, unspecified (principal) | CPT/HCPCS: 81002; 87086; G0463 ==

== ENCOUNTER → 2019-04-30 | Outpatient (CLI) | payer MEDICAID, MEDICARE ==
[~2019-04-30] MED LIST changes: -GLIM1TAB PO; +GLIM1TAB4 PO
--- NOTE | 2019-04-30 09:08 | REP ---
PA and lateral chest: Comparisons are 11/19/2017 and 03/31/2010. Lung voss are chronically hyperinflated, unchanged. There are no infiltrates or pleural effusions. There are small stable lung nodules bilaterally, unchanged, likely granulomas. Cardiac size is normal. The maximus, mediastinum, skeletal structures are unremarkable. Impression: There are no infiltrates or pleural effusions. There are small stable lung nodules, likely granulomas. Chronic hyperinflation. Electronically Signed by Erik Islas MD 04/30/2019 09:00 A
== END ==
LOC: M CLY 08:11
PROVIDERS: ATTEND Nurse Practitioner Family
DX: R91.8 Other nonspecific abnormal finding of lung field (principal); J40 Bronchitis, not specified as acute or chronic
CPT/HCPCS: 71046; 94640; G0463

== ENCOUNTER → 2019-05-28 | Outpatient (REF) | payer MEDICARE ==
[~2019-05-28] MED LIST changes: +GLIM1TAB PO; -GLIM1TAB4 PO
[2019-05-28 11:51] LABS: HEMATOCRIT 28.5 % (42.0-52.0); HEMOGLOBIN 9.1 g/dl (13.5-17.5); MEAN CORPUSCULAR HEMOGLOBIN 29.4 pg (27.0-33.0); MEAN CORPUSCULAR HGB CONC 31.9 g/dl (32.0-36.5); MEAN CORPUSCULAR VOLUME 92.2 fl (80.0-96.0); PLATELET COUNT, AUTOMATED 190 10^3/uL (150-450); RED BLOOD COUNT 3.09 10^6/uL (4.30-6.10); WHITE BLOOD COUNT 7.7 10^3/uL (4.0-10.0)
[2019-05-28 12:10] LABS: CALCIUM LEVEL 8.4 MG/DL (8.8-10.2); CREATININE FOR GFR 1.42 MG/DL (0.70-1.30); GLOMERULAR FILTRATION RATE 50.2 (>35); POTASSIUM SERUM 3.9 MEQ/L (3.5-5.1)
[2019-05-28 13:36] LABS: HEMOGLOBIN A1c 6.1 %
== END ==
LOC: M SFHCCLAY 08:05
PROVIDERS: ATTEND Family Medicine
DX: D50.0 Iron deficiency anemia secondary to blood loss (chronic) (principal); J44.9 Chronic obstructive pulmonary disease, unspecified; I12.9 Hypertensive chronic kidney disease with stage 1 through stage 4 chronic kidney disease, or unspecified chronic kidney disease; N18.3 Chronic kidney disease, stage 3 (moderate); E11.9 Type 2 diabetes mellitus without complications
CPT/HCPCS: 80048; 83036; 83550; 85027; G0463

== ENCOUNTER → 2019-10-20 | Outpatient (REF) | payer MEDICARE ==
[~2019-10-20] MED LIST changes: -GLIM1TAB PO; +GLIM1TAB2 PO
[2019-10-20 17:05] LABS: BLOOD UREA NITROGEN 19 MG/DL (7-18); CALCIUM LEVEL 8.9 MG/DL (8.8-10.2); CARBON DIOXIDE LEVEL 29 MEQ/L (21-32); CHLORIDE LEVEL 107 MEQ/L (98-107); CREATININE FOR GFR 1.17 MG/DL (0.70-1.30); GLOMERULAR FILTRATION RATE > 60.0 (>35); GLUCOSE, FASTING 95 MG/DL (70-100); IRON (FE) 140 UG/DL (65-175); PERCENT SATURATION 39.5 % (19.7-50.0); POTASSIUM SERUM 4.4 MEQ/L (3.5-5.1); SODIUM LEVEL 141 MEQ/L (136-145); TOTAL IRON BINDING CAPACITY 354 UG/DL (250-450)
[2019-10-20 17:07] LABS: HEMATOCRIT 33.2 % (42.0-52.0); HEMOGLOBIN 10.5 g/dl (13.5-17.5); MEAN CORPUSCULAR HEMOGLOBIN 28.3 pg (27.0-33.0); MEAN CORPUSCULAR HGB CONC 31.6 g/dl (32.0-36.5); MEAN CORPUSCULAR VOLUME 89.5 fl (80.0-96.0); PLATELET COUNT, AUTOMATED 253 10^3/uL (150-450); RED BLOOD COUNT 3.71 10^6/uL (4.30-6.10); WHITE BLOOD COUNT 5.8 10^3/uL (4.0-10.0)
== END ==
LOC: M SFHCCLAY 12:58
PROVIDERS: ATTEND Family Medicine
DX: J44.9 Chronic obstructive pulmonary disease, unspecified (principal); I12.9 Hypertensive chronic kidney disease with stage 1 through stage 4 chronic kidney disease, or unspecified chronic kidney disease; D50.0 Iron deficiency anemia secondary to blood loss (chronic)

== ENCOUNTER → 2019-12-28 | Outpatient (REF) | payer MEDICARE ==
[~2019-12-28] MED LIST changes: -GLIM1TAB2 PO; +GLIM1TAB4 PO
[2019-12-28 16:18] LABS: BASO # 0.1 10^3/uL (0.0-0.2); BASO % 0.8 % (0.0-1.0); EOS # 0.3 10^3/uL (0.0-0.5); EOS % 4.5 % (0.0-3.0); HEMATOCRIT 28.7 % (42.0-52.0); HEMOGLOBIN 9.1 g/dl (13.5-17.5); LYMPH # 1.3 10^3/uL (1.5-5.0); LYMPH % 19.9 % (24.0-44.0); MEAN CORPUSCULAR HEMOGLOBIN 29.4 pg (27.0-33.0); MEAN CORPUSCULAR HGB CONC 31.7 g/dl (32.0-36.5); MEAN CORPUSCULAR VOLUME 92.6 fl (80.0-96.0); MONO # 0.5 10^3/uL (0.0-0.8); NEUTROPHILS # 4.2 10^3/uL (1.5-8.5); NEUTROPHILS % 66.2 % (36.0-66.0); PLATELET COUNT, AUTOMATED 211 10^3/uL (150-450); WHITE BLOOD COUNT 6.4 10^3/uL (4.0-10.0)
[2019-12-28 16:22] LABS: ALBUMIN 4.1 GM/DL (3.2-5.2); ALT/SGPT 13 U/L (12-78); BILIRUBIN,TOTAL 0.5 MG/DL (0.2-1.0); BLOOD UREA NITROGEN 41 MG/DL (7-18); CALCIUM LEVEL 8.6 MG/DL (8.8-10.2); CARBON DIOXIDE LEVEL 27 MEQ/L (21-32); CHLORIDE LEVEL 106 MEQ/L (98-107); CREATININE FOR GFR 1.79 MG/DL (0.70-1.30); GLOMERULAR FILTRATION RATE 38.3 (>35); GLUCOSE, FASTING 103 MG/DL (70-100); POTASSIUM SERUM 4.3 MEQ/L (3.5-5.1); RHEUMATOID FACTOR QUANT < 10.0 IU/ML (<15.0); SODIUM LEVEL 137 MEQ/L (136-145); TOTAL PROTEIN 6.8 GM/DL (6.4-8.2); URIC ACID 5.3 MG/DL (3.5-7.2)
[2019-12-28 16:43] LABS: ERYTHROCYTE SEDIMENTATION RATE 52 mm/hr (0-20)
[2019-12-31 00:08] LABS: ANA (HEP2) Negative (.)
== END ==
LOC: M SFHCCLAY 11:40
PROVIDERS: ATTEND Family Medicine
DX: M25.50 Pain in unspecified joint (principal)
CPT/HCPCS: 80053; 84550; 85025; 85652; 86038; 86431; G0463

== ENCOUNTER → 2020-01-05 | Outpatient (REF) | payer MEDICARE ==
[2020-01-07 00:06] LABS: Lyme Disease IgG/IgM Antibodie <0.91 ISR (0.00-0.90); Lyme Disease IgM Ab Quantitati <0.80 index (0.00-0.79)
== END ==
LOC: M SFHCCLAY 09:02
PROVIDERS: ATTEND Family Medicine
DX: R21 Rash and other nonspecific skin eruption (principal)
CPT/HCPCS: 86617; G0463

== ENCOUNTER → 2020-02-19 | Outpatient (REF) | payer MEDICARE ==
[2020-02-19 11:20] LABS: HEMATOCRIT 26.5 % (42.0-52.0); HEMOGLOBIN 8.5 g/dl (13.5-17.5); MEAN CORPUSCULAR HEMOGLOBIN 30.5 pg (27.0-33.0); MEAN CORPUSCULAR HGB CONC 32.1 g/dl (32.0-36.5); PLATELET COUNT, AUTOMATED 184 10^3/uL (150-450); RED BLOOD COUNT 2.79 10^6/uL (4.30-6.10)
[2020-02-19 11:29] LABS: ALBUMIN 3.7 GM/DL (3.2-5.2); BILIRUBIN,TOTAL 0.5 MG/DL (0.2-1.0); CALCIUM LEVEL 9.1 MG/DL (8.8-10.2); CHOLESTEROL RISK RATIO 3.921 (<5); CREATININE FOR GFR 1.91 MG/DL (0.70-1.30); GLOMERULAR FILTRATION RATE 35.6 (>35); TOTAL PROTEIN 7.1 GM/DL (6.4-8.2)
[2020-02-19 11:44] LABS: HEMOGLOBIN A1c 5.8 %
== END ==
LOC: M SFHCCLAY 07:07
PROVIDERS: ATTEND Family Medicine
DX: D50.0 Iron deficiency anemia secondary to blood loss (chronic) (principal); I10 Essential (primary) hypertension; E11.21 Type 2 diabetes mellitus with diabetic nephropathy
CPT/HCPCS: 80053; 80061; 83036; 83540; 85027; G0463

== ENCOUNTER → 2020-08-19 | Outpatient (REF) | payer MEDICARE ==
[~2020-08-19] MED LIST changes: +AMLO1TAB24 PO; -AMLO5TAB6 PO
[2020-08-19 11:26] LABS: HEMATOCRIT 26.4 % (42.0-52.0); HEMOGLOBIN 8.6 g/dl (13.5-17.5); MEAN CORPUSCULAR HEMOGLOBIN 31.3 pg (27.0-33.0); MEAN CORPUSCULAR HGB CONC 32.6 g/dl (32.0-36.5); PLATELET COUNT, AUTOMATED 203 10^3/uL (150-450); RED BLOOD COUNT 2.75 10^6/uL (4.30-6.10); WHITE BLOOD COUNT 5.6 10^3/uL (4.0-10.0)
[2020-08-19 11:46] LABS: HEMOGLOBIN A1c 5.9 %
[2020-08-19 12:19] LABS: CALCIUM LEVEL 8.4 MG/DL (8.8-10.2); CHOLESTEROL RISK RATIO 3.388 (<5); CREATININE FOR GFR 1.69 MG/DL (0.70-1.30); GLOMERULAR FILTRATION RATE 40.9 (>35); POTASSIUM SERUM 3.6 MEQ/L (3.5-5.1)
== END ==
LOC: M SFHCCLAY 08:29
PROVIDERS: ATTEND Family Medicine
DX: D50.0 Iron deficiency anemia secondary to blood loss (chronic) (principal); J44.9 Chronic obstructive pulmonary disease, unspecified; E11.9 Type 2 diabetes mellitus without complications; I10 Essential (primary) hypertension; Z23 Encounter for immunization
CPT/HCPCS: 80048; 80061; 83036; 83540; 85027; 90682; G0008; G0463

== ENCOUNTER → 2020-12-21 | Outpatient (REF) | payer MEDICARE ==
[2020-12-21 11:37] LABS: HEMATOCRIT 25.1 % (42.0-52.0); HEMOGLOBIN 7.9 g/dl (13.5-17.5); MEAN CORPUSCULAR HEMOGLOBIN 29.7 pg (27.0-33.0); MEAN CORPUSCULAR HGB CONC 31.5 g/dl (32.0-36.5); MEAN CORPUSCULAR VOLUME 94.4 fl (80.0-96.0); PLATELET COUNT, AUTOMATED 198 10^3/uL (150-450); RED BLOOD COUNT 2.66 10^6/uL (4.30-6.10); WHITE BLOOD COUNT 5.6 10^3/uL (4.0-10.0)
[2020-12-21 12:23] LABS: ALBUMIN 3.9 GM/DL (3.2-5.2); BILIRUBIN,TOTAL 0.3 MG/DL (0.2-1.0); CHOLESTEROL RISK RATIO 4.016 (<5); CREATININE FOR GFR 2.35 MG/DL (0.70-1.30); GLOMERULAR FILTRATION RATE 27.9 (>35); PERCENT SATURATION 13.7 % (19.7-50.0); POTASSIUM SERUM 4.6 MEQ/L (3.5-5.1); TOTAL PROTEIN 6.5 GM/DL (6.4-8.2)
[2020-12-21 13:13] LABS: HEMOGLOBIN A1c 6.2 %
== END ==
LOC: M SFHCCLAY 07:46
PROVIDERS: ATTEND Family Medicine
DX: D50.0 Iron deficiency anemia secondary to blood loss (chronic) (principal); I10 Essential (primary) hypertension; E11.9 Type 2 diabetes mellitus without complications
CPT/HCPCS: 80053; 80061; 82728; 83036; 83550; 85027; G0463

== ENCOUNTER → 2021-01-16 | Outpatient (REF) | payer MEDICARE | LOC: M LAB REF 18:20 | PROVIDERS: ATTEND Surgery | DX: L85.8 Other specified epidermal thickening (principal) ==

== ENCOUNTER → 2021-02-14 | Outpatient (REF) | payer MEDICARE | LOC: M SFHCCLAY 11:21 | PROVIDERS: ATTEND Family Medicine | DX: R30.0 Dysuria (principal) ==

== ENCOUNTER → 2021-02-23 | Outpatient (REF) | payer MEDICARE | LOC: M SFHCCLAY 09:42 | PROVIDERS: ATTEND Family Medicine | DX: N30.00 Acute cystitis without hematuria (principal) ==

== ENCOUNTER 2021-02-26 21:00 | Emergency (ER) | payer MEDICARE ==
[~2021-02-26] VITALS: Ht 172.7 cm; Wt 73.6 kg
[2021-02-26 22:49] LABS: BASO # 0.1 10^3/uL (0.0-0.2); BASO % 0.7 % (0.0-1.0); EOS # 0.3 10^3/uL (0.0-0.5); EOS % 3.9 % (0.0-3.0); HEMATOCRIT 26.2 % (42.0-52.0); LYMPH % 13.5 % (24.0-44.0); MEAN CORPUSCULAR HEMOGLOBIN 29.3 pg (27.0-33.0); MEAN CORPUSCULAR HGB CONC 30.5 g/dl (32.0-36.5); MONO # 0.5 10^3/uL (0.0-0.8); MONO % 6.9 % (2.0-8.0); NEUTROPHILS # 5.3 10^3/uL (1.5-8.5); NEUTROPHILS % 74.3 % (36.0-66.0); PLATELET COUNT, AUTOMATED 256 10^3/uL (150-450); RED BLOOD COUNT 2.73 10^6/uL (4.30-6.10); WHITE BLOOD COUNT 7.1 10^3/uL (4.0-10.0)
--- NOTE | 2021-02-27 00:13 | REPVR ---
PROCEDURE INFORMATION: Exam: CT Abdomen And Pelvis Without Contrast Exam date and time: 02/26/2021 11:19 PM Age: 89 years old Clinical indication: Abdominal pain; Localized; Right; Additional info: Right flank pain TECHNIQUE: Imaging protocol: Computed tomography of the abdomen and pelvis without contrast. Radiation optimization: All CT scans at this facility use at least one of these dose optimization techniques: automated exposure control; mA and/or kV adjustment per patient size (includes targeted exams where dose is matched to clinical indication); or iterative reconstruction. COMPARISON: CT ABD PELVIS W/O CONTRAST 11/19/2017 2:40 AM FINDINGS: Lungs: Calcified granulomata at the bilateral lung bases atelectasis or scarring in the bilateral lower lobes. Pleural spaces: Coarsely calcified right pleural plaque. Mediastinal space: Small hiatal hernia. Liver: Innumerable calcified granulomata in the liver and spleen. Hepatomegaly. Gallbladder and bile ducts: Cholelithiasis. No specific evidence of acute cholecystitis. Pancreas: Normal. No ductal dilation. Spleen: Normal. No splenomegaly. Adrenal glands: Normal. No mass. Kidneys and ureters: Simple left renal cysts. Nonspecific bilateral perinephric fat stranding. Stomach and bowel: Diverticulosis of the colon. No evidence of acute diverticulitis. Appendix: No evidence of appendicitis. Intraperitoneal space: No pneumoperitoneum or ascites Vasculature: Atherosclerotic disease of the coronary arteries. Atherosclerotic disease of the thoracoabdominal aorta. Lymph nodes: Unremarkable. No enlarged lymph nodes. Urinary bladder: Suggestion of bladder outlet obstruction. Small urinary bladder diverticulum. Reproductive: Enlarged prostate. Bones/joints: Osteopenia. Age-indeterminate compression deformities of T12 and L2. Osteitis pubis. Soft tissues: Fat containing umbilical hernia. Omental fat within the hernia sac demonstrates extensive stranding. Omental infarct is considered. Correlate for point tenderness. IMPRESSION: Cholelithiasis. No evidence of acute cholecystitis. Diverticulosis of the colon. No evidence of acute diverticulitis. No bowel obstruction. Normal appendix. Enlarged prostate. Suggestion of bladder outlet obstruction. No hydronephrosis or nephrolithiasis bilaterally. Fat containing umbilical hernia. Omental fat within the hernia sac demonstrates extensive stranding. Omental infarct is considered. Correlate for point tenderness. COMMENTS: Consistent with the [employer]'s Incidental Findings Committee white paper (J Am Akil Radiol 2018): Any incidental renal lesion less than 1 cm or classified as too small to characterize, or any incidental cystic renal lesion characterized as simple-appearing, is likely benign. No follow-up imaging is recommended for these lesions per consensus recommendations based on imaging criteria. Electronically signed by: Evangelist Hernandez On 02/27/2021 00:14:23 AM
[2021-02-27 01:22] LABS: ALBUMIN 3.7 GM/DL (3.2-5.2); BILIRUBIN,DIRECT 0.1 MG/DL (0.0-0.2); BILIRUBIN,TOTAL 0.3 MG/DL (0.2-1.0); TOTAL PROTEIN 6.8 GM/DL (6.4-8.2)
[2021-02-27] MEDS ORDERED: NORCO 5/325MG TABLET (BULK FOR ED) PO ONE (01:25)
[2021-02-27 01:55] VITALS: BP 173/87
--- NOTE | 2021-02-27 09:36 | ECGEPIP ---
[facility] [place] - ED Test Date: 2021-02-26 Pat Name: RICARDO PERES Department: Room: - Gender: Male Therapeutic Massage Technician: MERRY : [id number] Requested By: ARMANDO Iqbal Order Number: [id number] Reading MD: Juan Ryan Measurements Intervals [place] Rate: 77 P: 74 AR: 162 QRS: 2 QRSD: 128 T: 55 QT: 422 QTc: 477 Interpretive Statements Normal sinus rhythm Right bundle branch block Possible Inferior infarct , age undetermined Baseline artifact Similar to tracing done 11-22-2017 Electronically Signed on 02-27-2021 9:36:05 EDT by Juan Ryan
== END 2021-02-27 02:12 | disposition home or self-care (01) ==
LOC: M ED 21:00
DX: K80.50 Calculus of bile duct without cholangitis or cholecystitis without obstruction (principal); I45.10 Unspecified right bundle-branch block; I11.9 Hypertensive heart disease without heart failure; I10 Essential (primary) hypertension; E78.5 Hyperlipidemia, unspecified; J44.9 Chronic obstructive pulmonary disease, unspecified; Z87.891 Personal history of nicotine dependence; N40.0 Benign prostatic hyperplasia without lower urinary tract symptoms; K57.30 Diverticulosis of large intestine without perforation or abscess without bleeding; K80.20 Calculus of gallbladder without cholecystitis without obstruction; K42.9 Umbilical hernia without obstruction or gangrene; Z79.899 Other long term (current) drug therapy; Z88.8 Allergy status to other drugs, medicaments and biological substances; Z88.1 Allergy status to other antibiotic agents; Z88.2 Allergy status to sulfonamides
CPT/HCPCS: 74176; 80047; 80076; 81001; 85025; 93005; 99285; G0103

== ENCOUNTER → 2021-02-26 | Outpatient (REF) | payer MEDICARE | LOC: M SFHCCLAY 15:16 | PROVIDERS: ATTEND Family Medicine | DX: Z12.5 Encounter for screening for malignant neoplasm of prostate (principal) ==

== ENCOUNTER → 2021-03-01 | Outpatient (CLI) | payer MEDICARE ==
--- NOTE | 2021-03-01 10:07 | REP ---
INDICATION: M54.5, LOW BACK PAIN COMPARISON: 04/02/2008 TECHNIQUE: AP, lateral, bilateral oblique, and coned-down views of the lumbar spine. FINDINGS: Age-related osteopenia and moderate to advanced degenerative changes are appreciated which have mildly progressed since prior examination. Findings include endplate sclerosis, osteophytosis and facet hypertrophy most pronounced at L5-S1. No acute fracture/compression injury or subluxation appreciated. IMPRESSION: Osteopenia and moderate to advanced multilevel degenerative changes. <Electronically signed by Ryan Alfaro > 03/01/21 1001
== END ==
LOC: M CLY 09:32
PROVIDERS: ATTEND Family Medicine
DX: M54.5 Low back pain (principal); M85.88 Other specified disorders of bone density and structure, other site; M51.37 Other intervertebral disc degeneration, lumbosacral region

== ENCOUNTER → 2021-03-01 | Outpatient (REF) | payer MEDICARE | LOC: M SFHCCLAY 09:28 | PROVIDERS: ATTEND Family Medicine | DX: Z12.5 Encounter for screening for malignant neoplasm of prostate (principal); Z53.9 Procedure and treatment not carried out, unspecified reason ==

== ENCOUNTER → 2021-03-07 | Outpatient (REF) | payer MEDICARE ==
[2021-03-07 16:25] LABS: BASO % 0.8 % (0.0-1.0); EOS # 0.2 10^3/uL (0.0-0.5); EOS % 4.8 % (0.0-3.0); HEMATOCRIT 27.4 % (42.0-52.0); HEMOGLOBIN 8.2 g/dl (13.5-17.5); LYMPH # 0.8 10^3/uL (1.5-5.0); LYMPH % 15.6 % (24.0-44.0); MEAN CORPUSCULAR HEMOGLOBIN 29.3 pg (27.0-33.0); MEAN CORPUSCULAR HGB CONC 29.9 g/dl (32.0-36.5); MEAN CORPUSCULAR VOLUME 97.9 fl (80.0-96.0); MONO # 0.4 10^3/uL (0.0-0.8); MONO % 8.5 % (2.0-8.0); NEUTROPHILS # 3.5 10^3/uL (1.5-8.5); NEUTROPHILS % 69.9 % (36.0-66.0); PLATELET COUNT, AUTOMATED 246 10^3/uL (150-450); WHITE BLOOD COUNT 5.1 10^3/uL (4.0-10.0)
[2021-03-07 16:51] LABS: CALCIUM LEVEL 9.1 MG/DL (8.8-10.2); CREATININE FOR GFR 2.55 MG/DL (0.70-1.30); GLOMERULAR FILTRATION RATE 25.4 (>35); PERCENT SATURATION 16.6 % (19.7-50.0)
== END ==
LOC: M SFHCCLAY 11:26
PROVIDERS: ATTEND Family Medicine
DX: M47.896 Other spondylosis, lumbar region (principal); D50.9 Iron deficiency anemia, unspecified
CPT/HCPCS: 80048; 83550; 85025; G0463

== ENCOUNTER → 2021-03-17 | Outpatient (REF) | payer MEDICARE ==
[2021-03-17 10:48] LABS: HEMATOCRIT 30.2 % (42.0-52.0); HEMOGLOBIN 9.2 g/dl (13.5-17.5); MEAN CORPUSCULAR HEMOGLOBIN 29.5 pg (27.0-33.0); MEAN CORPUSCULAR HGB CONC 30.5 g/dl (32.0-36.5); MEAN CORPUSCULAR VOLUME 96.8 fl (80.0-96.0); PLATELET COUNT, AUTOMATED 284 10^3/uL (150-450); RED BLOOD COUNT 3.12 10^6/uL (4.30-6.10); WHITE BLOOD COUNT 7.1 10^3/uL (4.0-10.0)
[2021-03-17 11:17] LABS: CREATININE FOR GFR 2.43 MG/DL (0.70-1.30); GLOMERULAR FILTRATION RATE 26.9 (>35); PERCENT SATURATION 21.3 % (19.7-50.0); POTASSIUM SERUM 5.5 MEQ/L (3.5-5.1)
== END ==
LOC: M SFHCCLAY 07:40
PROVIDERS: ATTEND Family Medicine
DX: N40.1 Benign prostatic hyperplasia with lower urinary tract symptoms (principal); N18.4 Chronic kidney disease, stage 4 (severe); D50.9 Iron deficiency anemia, unspecified

== ENCOUNTER → 2021-04-19 | Outpatient (REF) | payer MEDICARE ==
[2021-04-19 12:21] LABS: HEMATOCRIT 27.1 % (42.0-52.0); HEMOGLOBIN 8.4 g/dl (13.5-17.5); MEAN CORPUSCULAR HEMOGLOBIN 29.3 pg (27.0-33.0); MEAN CORPUSCULAR VOLUME 94.4 fl (80.0-96.0); PLATELET COUNT, AUTOMATED 204 10^3/uL (150-450); RED BLOOD COUNT 2.87 10^6/uL (4.30-6.10); WHITE BLOOD COUNT 5.6 10^3/uL (4.0-10.0)
[2021-04-19 13:26] LABS: CALCIUM LEVEL 8.7 MG/DL (8.8-10.2); CREATININE FOR GFR 1.92 MG/DL (0.70-1.30); GLOMERULAR FILTRATION RATE 35.3 (>35); POTASSIUM SERUM 4.2 MEQ/L (3.5-5.1)
[2021-04-19 13:29] LABS: PTH INTACT 99.5 PG/ML (18.5-88.0)
[2021-04-19 20:24] LABS: HEMOGLOBIN A1c 5.8 %
== END ==
LOC: M SFHCCLAY 07:37
PROVIDERS: ATTEND Family Medicine
DX: D50.0 Iron deficiency anemia secondary to blood loss (chronic) (principal); N18.4 Chronic kidney disease, stage 4 (severe); D50.9 Iron deficiency anemia, unspecified; E11.9 Type 2 diabetes mellitus without complications

== ENCOUNTER → 2021-05-24 | Outpatient (REF) | payer MEDICARE ==
[2021-05-24 11:44] LABS: HEMATOCRIT 30.3 % (42.0-52.0); HEMOGLOBIN 9.6 g/dl (13.5-17.5); MEAN CORPUSCULAR HEMOGLOBIN 29.6 pg (27.0-33.0); MEAN CORPUSCULAR HGB CONC 31.7 g/dl (32.0-36.5); MEAN CORPUSCULAR VOLUME 93.5 fl (80.0-96.0); PLATELET COUNT, AUTOMATED 208 10^3/uL (150-450); RED BLOOD COUNT 3.24 10^6/uL (4.30-6.10); WHITE BLOOD COUNT 5.5 10^3/uL (4.0-10.0)
[2021-05-24 12:19] LABS: CALCIUM LEVEL 9.3 MG/DL (8.8-10.2); CREATININE FOR GFR 1.85 MG/DL (0.70-1.30); GLOMERULAR FILTRATION RATE 36.8 (>35); POTASSIUM SERUM 4.7 MEQ/L (3.5-5.1)
== END ==
LOC: M SFHCCLAY 07:07
PROVIDERS: ATTEND Family Medicine
DX: J44.9 Chronic obstructive pulmonary disease, unspecified (principal); I10 Essential (primary) hypertension; N18.4 Chronic kidney disease, stage 4 (severe); D50.0 Iron deficiency anemia secondary to blood loss (chronic)

== ENCOUNTER → 2021-05-29 | Outpatient (REF) | payer MEDICARE ==
[2021-05-29 18:37] LABS: HEMATOCRIT 29.5 % (42.0-52.0); HEMOGLOBIN 9.1 g/dl (13.5-17.5); MEAN CORPUSCULAR HEMOGLOBIN 29.4 pg (27.0-33.0); MEAN CORPUSCULAR HGB CONC 30.8 g/dl (32.0-36.5); MEAN CORPUSCULAR VOLUME 95.5 fl (80.0-96.0); PLATELET COUNT, AUTOMATED 215 10^3/uL (150-450); RED BLOOD COUNT 3.09 10^6/uL (4.30-6.10); WHITE BLOOD COUNT 6.2 10^3/uL (4.0-10.0)
[2021-05-29 19:20] LABS: ALBUMIN 3.6 GM/DL (3.2-5.2); BILIRUBIN,TOTAL 0.5 MG/DL (0.2-1.0); CALCIUM LEVEL 8.5 MG/DL (8.8-10.2); CREATININE FOR GFR 1.61 MG/DL (0.70-1.30); FREE T4 0.84 NG/DL (0.76-1.46); GLOMERULAR FILTRATION RATE 43.2 (>35); POTASSIUM SERUM 4.6 MEQ/L (3.5-5.1); THYROID STIMULATING HORMONE 4.61 uIU/ML (0.358-3.740); TOTAL PROTEIN 6.2 GM/DL (6.4-8.2)
== END ==
LOC: M SFHCCLAY 09:57
PROVIDERS: ATTEND Family Medicine
DX: R63.4 Abnormal weight loss (principal)

== ENCOUNTER → 2021-06-07 | Outpatient (REF) | payer MEDICARE | LOC: M SFHCCLAY 08:34 | PROVIDERS: ATTEND Family Medicine | DX: R30.0 Dysuria (principal) | CPT/HCPCS: 81002; 87086; G0463 ==

== ENCOUNTER → 2021-06-14 | Outpatient (REF) | payer MEDICARE ==
[2021-06-14 11:52] LABS: HEMATOCRIT 29.2 % (42.0-52.0); HEMOGLOBIN 9.3 g/dl (13.5-17.5); MEAN CORPUSCULAR HEMOGLOBIN 30.2 pg (27.0-33.0); MEAN CORPUSCULAR HGB CONC 31.8 g/dl (32.0-36.5); MEAN CORPUSCULAR VOLUME 94.8 fl (80.0-96.0); PLATELET COUNT, AUTOMATED 217 10^3/uL (150-450); RED BLOOD COUNT 3.08 10^6/uL (4.30-6.10); WHITE BLOOD COUNT 7.2 10^3/uL (4.0-10.0)
[2021-06-14 12:16] LABS: CALCIUM LEVEL 8.7 MG/DL (8.8-10.2); CREATININE FOR GFR 1.53 MG/DL (0.70-1.30); GLOMERULAR FILTRATION RATE 45.9 (>35); POTASSIUM SERUM 4.1 MEQ/L (3.5-5.1)
== END ==
LOC: M SFHCCLAY 07:15
PROVIDERS: ATTEND Family Medicine
DX: D50.0 Iron deficiency anemia secondary to blood loss (chronic) (principal); E11.21 Type 2 diabetes mellitus with diabetic nephropathy